=== PATIENT | female | born 1960 | race Caucasian/White ===

== ENCOUNTER 2023-05-21 19:57 | Inpatient (IN) | payer OTHER, SELFPAY ==
[2023-05-21 21:13] LABS: ALT (SGPT) 33 U/L (8-55); AST (SGOT) 21 U/L (5-34); Albumin 4.1 g/dL (3.4-4.8); Alkaline Phosphatase 85 U/L (40-110); Anion Gap 13 mmol/L (10-20); BUN (Urea Nitrogen) 18 mg/dL (9.8-20.1); Bilirubin, Total Less than 0.2 mg/dL (0.2-1.2); Calc. Creatinine Clearance 0 mL/min (70-130); Calcium 9.5 mg/dL (7.8-10.44); Carbon Dioxide 26 mmol/L (23-31); Chloride 107 mmol/L (98-107); Estimated GFR 73; Globulin 2.5 g/dL (2.4-3.5); Glucose 112 mg/dL (80-115); Potassium 4.3 mmol/L (3.5-5.1); Protein, Total 6.6 g/dL (5.8-8.1); Sodium 142 mmol/L (136-145)
[2023-05-21] MEDS ORDERED: methylPREDNISolone Sod Succ/PF 125 MG/2 ML VIAL ONE (21:20)
[2023-05-21 21:22] LABS: #Eosinphils 0.1 thou/uL (0.0-0.7); #Monocytes 0.6 thou/uL (0.11-0.59); #Neutrophils 5.5 thou/uL (1.40-6.50); %Basophils 0.4 % (0.0-1.0); %Eosinophils 1.1 % (0.0-10.0); %Lymphocytes 26.1 % (21.0-51.0); %Monocytes 7.3 % (0.0-10.0); %Neutrophils 64.9 % (42.0-75.0); Mean Corpuscular HGB CONC 31.6 g/dL (32.0-36.0); Mean Corpuscular Hemoglobin 30.5 pg (27.0-31.0); Mean Corpuscular Volume 96.7 fl (78.0-98.0); Mean Platelet Volume 9.1 fL (7.4-10.4); Platelet Count 336 10x3/uL (130-400); RBC Distribution Width 12.9 % (11.5-14.5); Red Blood Cell (RBC) Count 3.93 mill/uL (4.20-5.40); White Blood Cell (WBC) Count 8.4 10x3/uL (4.8-10.8)
[2023-05-21 21:45] LABS: Troponin I Less than 0.010 ng/mL (< 0.028)
[2023-05-21] MEDS ORDERED: Aspirin Chewable 81 MG TAB ONE (23:09)
[2023-05-21] MEDS ORDERED: levETIRAcetam 500 MG (5 mL) VIAL ONE (23:31)
[2023-05-21] MEDS ORDERED: Ondansetron PF 4 MG/2 ML Vial IVP PRN (23:45)
[2023-05-21] MEDS ORDERED: Ondansetron ODT 4 MG TAB SL PRN (23:45)
[2023-05-22] MEDS ORDERED: Ipratropium/Albuterol 3 ML NEB EZPAP PRN (00:04)
[2023-05-22 01:07] VITALS: BMI 23.0
[2023-05-22] MEDS: METHYLPREDNISOLONE SOD SUCC IVPB SCH (01:15)
[2023-05-22] MEDS: SODIUM CHLORIDE 0.9% IVPB SCH (01:15)
[2023-05-22] MEDS: Lidocaine 2% Viscous Solution 10 ML, Aluminum & Magnesium Hydroxide 30 ML SSW SCH (01:16)
[2023-05-22] MEDS: Pantoprazole 40 MG VIAL IVP SCH (01:17)
[2023-05-22] MEDS ORDERED: Pantoprazole 40 MG VIAL ONE (01:19)
[2023-05-22] MEDS ORDERED: LORazepam 2 MG/ML SYR.(CARPUJECT) IVP PRN (02:17)
[2023-05-22 04:08] LABS: #Monocytes 0.1 thou/uL (0.11-0.59); #Neutrophils 8.5 thou/uL (1.40-6.50); %Basophils 0.1 % (0.0-1.0); %Lymphocytes 7.3 % (21.0-51.0); %Monocytes 0.5 % (0.0-10.0); %Neutrophils 91.8 % (42.0-75.0); Hematocrit 39.6 % (36.0-47.0); Hemoglobin 12.7 g/dL (12.0-16.0); Mean Corpuscular HGB CONC 32.1 g/dL (32.0-36.0); Mean Corpuscular Hemoglobin 30.5 pg (27.0-31.0); Mean Corpuscular Volume 95.2 fl (78.0-98.0); Mean Platelet Volume 9.4 fL (7.4-10.4); Platelet Count 335 10x3/uL (130-400); RBC Distribution Width 12.9 % (11.5-14.5); Red Blood Cell (RBC) Count 4.16 mill/uL (4.20-5.40); White Blood Cell (WBC) Count 9.3 10x3/uL (4.8-10.8)
[2023-05-22 04:26] LABS: Anion Gap 12 mmol/L (10-20); BUN (Urea Nitrogen) 16 mg/dL (9.8-20.1); Calc. Creatinine Clearance 72 mL/min (70-130); Calcium 8.8 mg/dL (7.8-10.44); Carbon Dioxide 21 mmol/L (23-31); Cardiac Risk 2.7 (Less than 4.5); Chloride 112 mmol/L (98-107); Cholesterol 198 mg/dl (< 200 Desired); Estimated GFR 89; Glucose 187 mg/dL (80-115); HDL Cholesterol 73 mg/dL (>60 Neg Risk); LDL Cholesterol, Calculated 117 mg/dL; Potassium 4.3 mmol/L (3.5-5.1); Sodium 141 mmol/L (136-145); Triglycerides 41 mg/dL (Less than 150)
[2023-05-22] MEDS: Levothyroxine Sodium 100 MCG TAB PO SCH (06:00)
[2023-05-22] MEDS ORDERED: Levothyroxine Sodium 100 MCG TAB ONE (06:08)
[2023-05-22] MEDS ORDERED: levETIRAcetam 500 MG TAB ONE (08:44)
[2023-05-22] MEDS ORDERED: levETIRAcetam 500 MG TAB PO SCH (09:00)
[2023-05-22] MEDS: levETIRAcetam 500 MG TAB PO SCH (09:15)
[2023-05-22 09:59] LABS: Bacteria/HPF None Seen HPF (None Seen); Bilirubin Negative (Negative); Blood, Urine Negative (Negative); CAUTI Indications for Culture < 2yrs of age; Clarity Clear (Clear); Glucose, Urine (Dipstick) 70 mg/dL (Negative); Ketone, Urine Negative (Negative); Leukocyte Negative Leu/uL (Negative); Nitrite Negative (Negative); Protein, Urine (Dipstick) Negative (Neg-Trace); RBC/HPF 0-3 HPF (0-3); Specific Gravity, Urine 1.018 (1.002-1.036); Urobilinogen Normal mg/dL (Less than 2); WBC/HPF 0-3 HPF (0-3); pH, Urine 6.5 (5.0-9.0)
[2023-05-22 10:24] LABS: Urine Culture Reflex Yes Yes
[2023-05-22] MEDS: Atorvastatin Calcium 20 MG TAB PO SCH (20:40)
[2023-05-22] MEDS: Acetaminophen 325 MG TAB PO PRN (20:41)
[2023-05-22] MEDS: methylPREDNISolone Sod Succ 1 GM in Sodium Chloride 0.9% 250 ML 250 ML IVPB SCH (23:30)
[2023-05-23] MEDS ORDERED: methylPREDNISolone Sod Succ 40 MG VIAL IVP SCH
[2023-05-23 04:27] LABS: #Monocytes 0.2 thou/uL (0.11-0.59); %Basophils 0.1 % (0.0-1.0); %Lymphocytes 4.9 % (21.0-51.0); %Monocytes 1.3 % (0.0-10.0); %Neutrophils 93.1 % (42.0-75.0); Hematocrit 35.6 % (36.0-47.0); Hemoglobin 11.5 g/dL (12.0-16.0); Mean Corpuscular HGB CONC 32.3 g/dL (32.0-36.0); Mean Corpuscular Hemoglobin 30.7 pg (27.0-31.0); Mean Corpuscular Volume 94.9 fl (78.0-98.0); Mean Platelet Volume 9.7 fL (7.4-10.4); Platelet Count 318 10x3/uL (130-400); RBC Distribution Width 13.2 % (11.5-14.5); Red Blood Cell (RBC) Count 3.75 mill/uL (4.20-5.40); White Blood Cell (WBC) Count 12.9 10x3/uL (4.8-10.8)
[2023-05-23 04:50] LABS: Anion Gap 14 mmol/L (10-20); BUN (Urea Nitrogen) 17 mg/dL (9.8-20.1); Calc. Creatinine Clearance 66 mL/min (70-130); Calcium 8.6 mg/dL (7.8-10.44); Carbon Dioxide 20 mmol/L (23-31); Chloride 109 mmol/L (98-107); Estimated GFR 80; Glucose 206 mg/dL (80-115); Potassium 4.1 mmol/L (3.5-5.1); Sodium 139 mmol/L (136-145)
[2023-05-23] MEDS: Enoxaparin 40 MG (0.4 mL) SYRINGE SC SCH (09:59)
[2023-05-23] MEDS ORDERED: Non-Formulary Item 1 EACH (Olanzapine [Zyprexa] 10 MG Tablet) PO SCH (11:30)
[2023-05-23] MEDS: Baclofen 10 MG TAB PO SCH (15:04)
[2023-05-23] MEDS: levETIRAcetam 500 MG TAB PO SCH (19:47)
[2023-05-23] MEDS ORDERED: OLANZAPINE 20 MG PO SCH (21:00)
[2023-05-24 05:00] LABS: #Monocytes 0.2 thou/uL (0.11-0.59); #Neutrophils 11.8 thou/uL (1.40-6.50); %Basophils 0.1 % (0.0-1.0); %Lymphocytes 5.7 % (21.0-51.0); %Monocytes 1.6 % (0.0-10.0); %Neutrophils 92.2 % (42.0-75.0); Hematocrit 36.3 % (36.0-47.0); Hemoglobin 11.6 g/dL (12.0-16.0); Mean Corpuscular Hemoglobin 30.4 pg (27.0-31.0); Mean Corpuscular Volume 95.3 fl (78.0-98.0); Mean Platelet Volume 11.2 fL (7.4-10.4); Platelet Count 257 10x3/uL (130-400); RBC Distribution Width 13.4 % (11.5-14.5); Red Blood Cell (RBC) Count 3.81 mill/uL (4.20-5.40); White Blood Cell (WBC) Count 12.7 10x3/uL (4.8-10.8)
[2023-05-24 05:25] LABS: Anion Gap 14 mmol/L (10-20); BUN (Urea Nitrogen) 16 mg/dL (9.8-20.1); Calc. Creatinine Clearance 70 mL/min (70-130); Calcium 8.9 mg/dL (7.8-10.44); Carbon Dioxide 21 mmol/L (23-31); Chloride 109 mmol/L (98-107); Estimated GFR 85; Glucose 170 mg/dL (80-115); Sodium 140 mmol/L (136-145)
[2023-05-24] MEDS: Docusate 100 MG CAP PO SCH (08:12)
[2023-05-24] MEDS: Lidocaine 4% Patch TD SCH (09:13)
[2023-05-24 16:14] VITALS: BP 162/79; TEMP 98
[2023-05-24] MEDS ORDERED: LIDOCAINE Patch Removal TOP SCH (21:00)
== END 2023-05-24 16:30 | disposition home or self-care (01) | DRG 60 ==
LOC: ERS 19:57 → 2NO 23:15 → ERHOLD 23:29 → 2NO 05-22 15:11
PROVIDERS: ADMIT Internal Medicine; ATTEND Internal Medicine
DX: G35 Multiple sclerosis (principal); K21.9 Gastro-esophageal reflux disease without esophagitis; J44.9 Chronic obstructive pulmonary disease, unspecified; E78.5 Hyperlipidemia, unspecified; S93.402A Sprain of unspecified ligament of left ankle, initial encounter; F41.9 Anxiety disorder, unspecified; F43.10 Post-traumatic stress disorder, unspecified; S93.602A Unspecified sprain of left foot, initial encounter; S43.401A Unspecified sprain of right shoulder joint, initial encounter; G40.909 Epilepsy, unspecified, not intractable, without status epilepticus; E03.9 Hypothyroidism, unspecified; W18.30XA Fall on same level, unspecified, initial encounter; Z88.0 Allergy status to penicillin; Z88.2 Allergy status to sulfonamides; Z88.1 Allergy status to other antibiotic agents; Z98.890 Other specified postprocedural states; Z87.891 Personal history of nicotine dependence
CPT/HCPCS: 36415; 36416; 70450; 70551; 71045; 80048; 80053; 80061; 80177; 81001; 83735; 84443; 84484; 85025; 87086; 93005; 96361; 96365; 96366; 96368; 96376; C9113; J1650; J1953; J2930; J7050